=== PATIENT | male | born 1960 | race Caucasian/White ===

== ENCOUNTER 2020-08-20 08:33 | Emergency (ER) | payer BC, OTHER ==
[~2020-08-20] VITALS: Ht 190.5 cm; Wt 128.0 kg
[2020-08-20 08:34] VITALS: BP 170/91
[2020-08-20] MEDS ORDERED: CYCL-1 PO (09:34)
[2020-08-20] MEDS ORDERED: LIDO700A32 TOP (09:34)
== END 2020-08-20 09:55 | disposition home or self-care (01) ==
LOC: ER 08:33
DX: M54.41 Lumbago with sciatica, right side (principal); Z98.890 Other specified postprocedural states; Z79.899 Other long term (current) drug therapy
CPT/HCPCS: 99283

== ENCOUNTER 2020-09-05 07:32 | Emergency (ER) | payer BC ==
[~2020-09-05] VITALS: Ht 190.5 cm; Wt 128.2 kg
[~2020-09-05 07:32] MED LIST: CYCL-1 PO; LIDO700A32 TOP
[2020-09-05 08:07] VITALS: BP 159/95
== END 2020-09-05 08:09 | disposition home or self-care (01) ==
LOC: ER 07:33
DX: M54.42 Lumbago with sciatica, left side (principal); M54.41 Lumbago with sciatica, right side; G89.29 Other chronic pain; Z72.89 Other problems related to lifestyle; Z98.890 Other specified postprocedural states; Z79.899 Other long term (current) drug therapy
CPT/HCPCS: 99282